=== PATIENT | male | born 1955 | race Caucasian/White ===

== ENCOUNTER 2023-07-14 11:21 | Outpatient (AMB) | payer MEDICARE, SELFPAY ==
--- NOTE | 2023-07-14 11:52 | MHC.OFFWIV ---
Intake Vital Signs 07/14/23 11:55 Height 6 ft 1 in Weight 196 lb BMI 25.9 BP 128/76 Blood Pressure Location Rt brachial Position Sitting Pulse 81 Pulse Source Pulse Oximeter Pulse Oximetry (%) 97 Oxygen Delivery Method Room Air Intake Visit Reasons: EST/bot ears blocked (lobby masked) Intake Note: Patient here for bilat ear blockage that needs to be removed for hearing aids. Patient Tobacco Use Status: Never used Tobacco Allergies No Known Allergies Allergy (Verified 07/14/23 11:59) Do you need a note to return to daycare/school/sports/work: No HPI EST/bot ears blocked (lobby masked) HPI Details 68 year old male patient presents today with bilateral cerumen impaction. He was being fitted/evaluated for hearing aides this week and the metal drill operator could not do so based on the cerumen and advised patient have ears flushed prior to returning. Patient has been placing hydrogen peroxide drops in b/l ears to help soften the cerumen. No ear pain. [facility] Patient Tobacco Use Status: Never used Tobacco Review of Systems Const All systems reviewed & are unremarkable except as noted in HPI and below Physical Exam Vital Signs: Last Vital Signs Pulse 81 07/14/23 11:55 BP 128/76 07/14/23 11:55 Pulse Ox 97 07/14/23 11:55 Oxygen Delivery Method Room Air 07/14/23 11:55 BMI result Body Mass Index 25.9 Const General: cooperative, healthy appearing and no acute distress HEENT Head: Yes normal to inspection Ears: external ears normal, TM's normal bilaterally (cerumen impaction L>R, once clear, TMs wnl) and hearing grossly impaired (mild impairment) bilaterally General nose exam: Normal external nose present Resp Effort & Inspection: normal respiratory effort and able to speak in complete sentences Skin General skin exam: no rashes or lesions noted Psych Appearance: grossly normal Mental Status: mental status grossly normal Speech and movement: Normal speech and movement present Office Procedures Cerumen Removal From which ear canal was the cerumen removed: bilateral Removal: irrigation Notes: patient tolerated procedure well, no complications and ear canal clear [id number] Irrigation/Lavage Assessment & Plan Assessment & Plan (1) Impacted cerumen of both ears: Code(s): H61.23 - Impacted cerumen, bilateral Plan: Ear canals clear following irrigation. TMs normal. Patient tolerated procedure well and will call for f/u with metal drill operator for hearing aide fitting. Advised to use debrox drops prn and he may return to the clinic as needed for repeat irrigations. He agrees to plan. Coding Level of Care Code Est Pt Level 3 (71949) Diagnoses Impacted cerumen of both ears H61.23 CPT Codes Office Procedure - CPT: 73992-Wnt Irrigation/Lavage ([id number])
[2023-07-14 11:55] VITALS: BP 128/76; PULSE 81; O2SAT 97; BMI 25.9
== END 2023-07-14 12:30 | disposition home or self-care (01) ==
PROVIDERS: Visit Provider Nurse Practitioner Family
DX: H61.23 Impacted cerumen, bilateral (principal)
CPT/HCPCS: 69209; 99213

== ENCOUNTER 2023-09-06 12:37 | Outpatient (AMB) | payer MEDICARE, SELFPAY ==
[2023-09-06 12:43] VITALS: BP 120/78; PULSE 80; O2SAT 97; BMI 25.5
--- NOTE | 2023-09-06 12:43 | MHC.PC.OV ---
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 Manager Required: No Accompanied by: Self / Same As Patient Allergies fabric softener Allergy (Mild, Uncoded 09/06/23 13:07) sensitive skin Medication List - Last Reconciled 09/06/23 by MARCO Herr tadalafil 10 mg PO DAILY PRN trazodone 25 mg (1/2 x 50 mg) PO BEDTIME PRN Tobacco use date assessed: 09/06/23 Fall risk assessment: No Falls in past year Last assessed Fall Risk: 09/06/23 Dental Screening Dental Screen Date: 09/06/23 Did you have a dental visit in the last 12 months?: Yes Did you have a dental problem in the last 6 months where you did not have access to dental care?: No Was dental information given to patient?: Patient has dentist HPI HPI Comments History of Present Illness Details Patient is a 68-year-old male here to establish care. He has a past medical history significant for basal cell carcinoma, and prostate malignancy. 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 He was recently seen in dermatology for full body exam 1 month prior to this appointment. Patient has agreed to send us records from his previous providers. He has a chief complaint of insomnia. States that he has difficulty getting and staying asleep. He has utilize interventions like reading, avoiding blue light. He states that anxiety may be playing a small part in this, however he does not feel overly anxious. He has declined a therapist at this time. Denies tingling, chest pain, shortness a breath, numbness, nausea, vomiting, diarrhea. He is up-to-date on his immunizations. Will send medical records to determine when next colonoscopy is due. He is getting fitted for hearing aids later this month. 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 1. Little interest or pleasure in doing things: not at all 2. Feeling down, depressed, or hopeless: not at all 3. Trouble falling or staying asleep, or sleeping too much: several days 4. Feeling tired or having little energy: not at all 5. Poor appetite or overeating: not at all 6. Feeling bad about yourself - or that you are a failure or have let yourself or your family down: not at all 7. Trouble concentrating on things, such as reading the newspaper or watching television: not at all 8. Moving or speaking so slowly that other people could have noticed. Or the opposite - being so fidgety or restless that you have been moving around a lot more than usual: not at all 9. Thoughts that you would be better off or of hurting yourself in some way: not at all Total score: 1 Depression Screening Interpretation: Negative Depression Screening Done: Yes 57160 - PHQ-9 Billing: Yes Source: Developed by Drs. Remi Urbina, Rhonda Perez, Ulisses Osborne and colleagues, with an educational daryn from [employer]. Thrive Questionnaire Date Thrive assessed: 09/06/23 I am a: Patient What is your living situation today?: I have a steady place to live Within the past 12 months, did the food you bought not last and you didn't have the money to get more?: Never true Within the past 12 months, did you worry whether your food would run out before you got money to buy more?: Never true Do you have trouble paying for medicines?: No Do you have trouble getting transportation to medical appointments?: No Do you have trouble paying your heating and electricity bill?: No Do you have trouble taking care of your child, family member or friend?: No Do you have trouble with day-to-day activities such as bathing, preparing meals, shopping, managing finances, etc.?: No Are you currently unemployed and looking for a job?: No Are you interested in more education?: No Please select the resources that you would like help with: None AUDIT C Alcohol Use Questionnaire (AUDIT-C) 1. How often do you have a drink containing alcohol?: Never 3. How often do you have six or more drinks on one occasion?: Never Total Score: 0 BROCK-7 AMB Questionnaire BROCK-7 Date BROKC - 7 assessed: 09/06/23 Feeling nervous, anxious, or on edge: 0 = Not at all Not being able to stop or control worryin = Not at all Worrying too much about different things: 1 = Several days Trouble relaxin = Several days Being so restless that it is hard to sit still: 0 = Not at all Becoming easily annoyed or irritable: 0 = Not at all Feeling afraid as if something awful might happen: 0 = Not at all Total BROCK-7 score (0-4 normal; 5-9 mild; 10-14 moderate; 15-21 severe): 2 Source: Developed by Drs. Remi Urbina, Rhonda Perez, Ulisses Osborne and colleagues, with an educational daryn from [employer]. BROCK-7 Assessment Billing BROCK-7 Assessment Tool: BROCK-7 Assessment 62262 Review of Systems Const Details: Constitutional : No Weight loss, No Fever, No Chills, No Fatigue, No Malaise ENT/Mouth : No sore throat, No Rhinorrhea. No ear fullness Eyes: No Eye Pain, No Swelling, No Redness Cardiovascular : No Chest Pain, No SOB, No Dyspnea on Exertion, No Orthopnea, No Edema, No Palpitations Respiratory : No Cough, No Sputum, No Wheezing Gastrointestinal : No Nausea, No Vomiting, No Diarrhea, No Constipation, No abdominal Pain, No Hematochezia, No Melena Genitourinary : No Dysuria, No Urinary Frequency, No Hematuria, Skin : No Skin Lesions, No rash Neuro : No Weakness, No Numbness, No Dizziness, No Headache Psych : No Anxiety/Panic, No Depression All other systems reviewed and are negative Physical exam (Primary Care) Vital Signs: Last Vital Signs Pulse 80 09/06/23 12:43 BP 120/78 09/06/23 12:43 Pulse Ox 97 09/06/23 12:43 Oxygen Delivery Method Room Air 09/06/23 12:43 Care Plan Goal for BP management: Vital signs reviewed stable BMI result Body Mass Index 25.5 Tobacco/Smoking Status: Tobacco use Status Tobacco use date assessed 09/06/23 09/06/23 12:54 Patient Tobacco Use Status Never used Tobacco 09/06/23 12:51 e-Cigarette/Vaping Use Never Used 09/06/23 12:54 PHQ-9: PHQ-9 Score PHQ-9: Total score 1 09/06/23 12:54 Depression Screening Interpretation: Negative Thrive Assessment: Date of Thrive Assessment Date Thrive assessed 09/06/23 09/06/23 12:54 Const Other: Appearance: Alert.? Oriented X3.? No acute distress.? Head: Normocephalic, atraumatic, no step-offs or deformities ENT: Pharynx normal.?TM intact and pearly stone. Neck: Normal inspection.? Neck supple.? CVS: Normal heart rate and rhythm.? Pulses normal.? Respiratory: No respiratory distress.? Breath sounds normal.? Skin: Skin warm and dry.? Normal skin color.? Normal skin turgor.? Neuro: Oriented X 3.? No motor deficit.? No sensory deficit. CN 2-12 intact Assessment and Plan Assessment & Plan (1) Insomnia: Comment: Will prescribe trazodone for patient to take as directed. Will order labs. Patient is going to send us medical records from his other providers. Patient has been educated on common side effects of this medication. Code(s): G47.00 - Insomnia, unspecified Qualifiers: Insomnia type: primary Qualified Code(s): F51.01 - Primary insomnia Plan: Take your medications as prescribed. If you were prescribed antibiotics today, it is important that you take your medication to their entirety, do not skip any doses, do not finish them early. Follow-up with your primary care provider this week. Return to the emergency department with new or worsening symptoms. Such as fevers, chills, chest pain, shortness of breath, nausea, vomiting, dizziness, headache, vision changes, lethargy In case of emergency call 911 Plan Follow-up for for physical exam in 3 months. Orders: Orders Complete Blood Count Auto Diff Today Z13.0 - Encounter for screening for diseases of the blood and blood-forming organs and certain disorders involving the immune mechanism Comprehensive Met. Panel Today Z91.89 - Other specified personal risk factors, not elsewhere classified UA CC w/rflx Micro + Cult Today E86.0 - Dehydration Lipid Panel Today E78.5 - Hyperlipidemia, unspecified TSH reflex Free T4 Today E03.9 - Hypothyroidism, unspecified Vitamin D 25-OH (D2 and D3) Today Z13.21 - Encounter for screening for nutritional disorder PSA,Total (Free>4and<10) Today Z12.5 - Encounter for screening for malignant neoplasm of prostate Medications: New trazodone 25 mg (1/2 x 50 mg) PO BEDTIME PRN 30 tabs 0RF sleep Coding Level of Care Code Est Pt Level 2 (64508) Diagnoses Primary insomnia F51.01 Insomnia type: primary Additional Codes BROCK-7 Assessment Billing - BROCK-7 Assessment Tool: BROCK-7 Assessment 05728 ([id number]) Time Spent (min) 30
== END 2023-09-06 14:59 | disposition home or self-care (01) ==
PROVIDERS: Visit Provider Nurse Practitioner Primary Care
DX: F51.01 Primary insomnia (principal)
CPT/HCPCS: 99214

== ENCOUNTER 2023-12-06 12:55 | Outpatient (REF) | payer MEDICARE, SELFPAY ==
[2023-12-06 15:50] LABS: MANUAL DIFF FLAG NO
[2023-12-06 15:53] LABS: Basophils Absolute Auto 0.1 X10*3/uL (0.0-0.2); Basophils Percent Auto 0.7 % (0-2); Eosinophils Absolute Auto 0.3 X10*3/uL (0.0-0.4); Hemoglobin 15.5 g/dl (14.0-18.0); Imm Gran Abs Auto 0.02 X10*3/uL (0.00-0.03); Imm Gran Pct Auto 0.3 % (0.0-0.4); Mean Corpuscular HGB Conc 33.7 g/dl (31.0-36.0); Mean Corpuscular Hemoglobin 30.4 pg (27.0-33.0); Mean Corpuscular Volume 90.2 fL (80.0-98.0); Mean Platelet Volume 10.6 fL (9.4-12.4); Monocytes Absolute Auto 0.6 X10*3/uL (0.1-1.2); Monocytes Percent Auto 7.9 % (2-11); Neutrophils Percent Auto 58.1 % (45-73); Platelet Count 274 X10*3/uL (160-400); Red Cell Distribution Width 13.2 % (11.0-16.0); White Blood Count 6.9 X10*3/uL (4.8-10.8)
[2023-12-06 16:00] LABS: Appearance Urine Clear; Color Urine Yellow; Glucose Urine UA Negative (Negative); Leukocyte Esterase Urine Negative (Negative); Nitrite Urine Negative (Negative); UMIC TRIGGER UACC YES; Urine Blood Trace (Negative); Urine Ketones Negative (Negative); Urine Protein Negative (Neg-Trace)
[2023-12-06 16:03] LABS: Bacteria Urine None Seen (None Seen); Hyaline Casts Urine 0-2 /LPF (0-2); Squamous Epithelial Cell Urine 0-2 /HPF (0-2); WBC Urine 0-5 /HPF (0-5)
[2023-12-06 17:48] LABS: Alanine Aminotransferase 17 U/L (0-40); Albumin Level 4.4 g/dL (3.5-5.0); Alkaline Phosphatase 92 U/L (39-117); Anion Gap 13 (12-20); Aspartate Amino Transferase 22 U/L (5-37); Bilirubin Total 0.6 mg/dL (0.0-1.0); Blood Urea Nitrogen 11 mg/dL (9-16); Calcium 9.4 mg/dL (8.4-10.2); Carbon Dioxide 26 mmol/L (22-29); Chloride 103 mmol/L (96-108); Cholesterol 180 mg/dL (<200); Estimated Glomerular Filt Rate > 60; Glucose Random 89 mg/dL (60-115); HDL Cholesterol 48 mg/dL (>40); LDL Cholesterol Calculated 104 mg/dL (<100); Potassium 3.9 mmol/L (3.3-5.1); Sodium 138 mmol/L (135-145); Total Protein 7.4 g/dL (6.5-8.0); Triglycerides 140 mg/dL (<150)
[2023-12-06 18:06] LABS: PSA,Total (Free>4and<10) < 0.10 ng/mL (0.00-4.00)
[2023-12-06 18:07] LABS: TSH reflex Free T4 1.46 uIU/mL (0.32-4.0)
[2023-12-09 14:18] LABS: Vitamin D 25-OH, D2 <4 ng/mL; Vitamin D 25-OH, D3 28 ng/mL; Vitamin D 25-OH, Total 28 ng/mL (30-100)
== END 2023-12-06 12:56 | disposition home or self-care (01) ==
LOC: HO.HMGCLDS 12:55
PROVIDERS: PCP Nurse Practitioner Primary Care; Visit Provider Nurse Practitioner Primary Care
DX: Z13.0 Encounter for screening for diseases of the blood and blood-forming organs and certain disorders involving the immune mechanism (principal)
CPT/HCPCS: 36415; 80053; 80061; 81001; 81003; 82306; 84153; 84443; 85025

== ENCOUNTER 2023-12-09 15:10 | Outpatient (AMB) | payer MEDICARE, SELFPAY ==
--- NOTE | 2023-12-09 15:16 | A.OFFPC_ITS ---
Vital Signs 12/09/23 15:17 Height 6 ft 1 in Weight 192 lb BMI 25.3 BP 120/76 Blood Pressure Location Lt brachial Position Sitting Pulse 78 Pulse Source Pulse Oximeter Pulse Oximetry (%) 96 Oxygen Delivery Method Room Air Intake Visit Reasons: Annual PE Intake Note: Pt is here today for PE. Allergies fabric softener Allergy (Mild, Uncoded 12/09/23 15:22) sensitive skin Medication List - Last Reconciled 12/09/23 by MARCO Herr fluocinolone 0.01% 1 appl topical QID PRN tadalafil 10 mg PO DAILY PRN trazodone 25 mg (1/2 x 50 mg) PO BEDTIME PRN Tobacco use date assessed: 12/09/23 Fall risk assessment: No Falls in past year Last assessed Fall Risk: 12/09/23 Dental Screening Dental Screen Date: 12/09/23 Did you have a dental visit in the last 12 months?: Yes Did you have a dental problem in the last 6 months where you did not have access to dental care?: No Was dental information given to patient?: Patient has dentist HPI HPI Comments History of Present Illness Details Patient is a 68-year-old male in for physical exam. Patient is up-to-date on his immunizations. Patient is up-to-date on colonoscopy, next colonoscopy due 2024. Patient has past medical history of prostate cancer, insomnia, melanoma, erectile dysfunction, diminished hearing, osteoarthritis of bilateral hands and knees, TMJ dysfunction. 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 Patient recently had lab labs drawn. 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 66331 - PHQ-9 Billing: Patient declined-do not bill Source: Developed by Drs. Remi Urbina, Rhonda Perez, Ulisses Osborne and colleagues, with an educational daryn from [employer]. Thrive Questionnaire Date Thrive assessed: 09/06/23 AUDIT C Alcohol Use Questionnaire (AUDIT-C) 1. How often do you have a drink containing alcohol?: 4 or more times a week 2. How many drinks containing alcohol do you have on a typical day when you are drinking?: 1 or 2 3. How often do you have six or more drinks on one occasion?: Never Total Score: 4 BROCK-7 AMB Questionnaire BROCK-7 Date BROCK - 7 assessed: 09/06/23 Source: Developed by Drs. Remi Urbina, Rhonda Perez, Ulisses Osborne and colleagues, with an educational daryn from [employer]. BROCK-7 Assessment Billing BROCK-7 Assessment Tool: pt declined-do not bill Review of Systems Const Details: Constitutional : No Weight loss, No Fever, No Chills, No Fatigue, No Malaise ENT/Mouth : No sore throat, No Rhinorrhea Eyes: No Eye Pain, No Swelling, No Redness Cardiovascular : No Chest Pain, No SOB, No Dyspnea on Exertion, No Orthopnea, No Edema, No Palpitations Respiratory : No Cough, No Sputum, No Wheezing Gastrointestinal : No Nausea, No Vomiting, No Diarrhea, No Constipation, No abdominal Pain, No Hematochezia, No Melena Genitourinary : No Dysuria, No Urinary Frequency, No Hematuria, Musculoskeletal : Admits bilateral hand weakness, No Myalgias, No Joint Swelling Skin : No Skin Lesions, No rash Neuro :No Dizziness, No Headache Psych : No Anxiety/Panic, No Depression, Admits some insomnia. Heme/Lymph: No Bruising, No Bleeding,No Lymphadenopathy Endocrine : No Polyuria, No Polydipsia All other systems reviewed and are negative Physical exam (Primary Care) Vital Signs: Last Vital Signs Pulse 78 12/09/23 15:17 BP 120/76 12/09/23 15:17 Pulse Ox 96 12/09/23 15:17 Oxygen Delivery Method Room Air 12/09/23 15:17 Care Plan Goal for BP management: Vital signs reviewed stable BMI result Body Mass Index 25.3 Tobacco/Smoking Status: Tobacco use Status Tobacco use date assessed 12/09/23 12/09/23 15:27 Patient Tobacco Use Status Never used Tobacco 12/09/23 15:27 e-Cigarette/Vaping Use Never Used 12/09/23 15:22 Thrive Assessment: Date of Thrive Assessment Date Thrive assessed 09/06/23 12/09/23 15:22 Const General: cooperative and no acute distress Orientation/consciousness: patient oriented x3 Limitations: no limitations HENMT Head: Yes normal to inspection and Yes normocephalic Ears: TM's normal bilaterally and other (Patient utilizes hearing aids) General nose exam: Normal external nose present Face and sinus: Yes normal facial exam Mouth: Normal oral and palatal mucosa present Throat: Yes posterior oropharynx normal Eyes Conjunctivae: conjunctivae normal Sclerae: sclerae normal Pupils: Equal, round and reactive pupils present EOM: EOMs intact bilaterally Direct Ophthalmoscopy: normal light reflex, no photophobia and no papilledema Neck Neck: Yes normal visual inspection, Yes full ROM and Yes no lymphadenopathy Thyroid: Thyroid normal Lymphatic: no lymphadenopathy noted Chest Chest palpation & inspection: normal inspection of the chest Resp Effort & Inspection: normal respiratory effort Auscultation: clear to auscultation bilaterally Cardio Rate: regular rate Rhythm: regular rhythm Heart sounds: S1 normal heart sound present and S2 normal heart sound present Peripheral pulses: Peripheral pulses 2+ throughout GI Inspection: Yes normal to inspection Palpation (GI): Soft to palpation and nontender Rectal Exam - Male: Yes deferred General: Yes no CVA tenderness Back/Spine/Pelvis Back: no CVA tenderness Thoracic/Lumbar Spine: thoracic and lumbar spine normal to inspection Skin General skin exam: no rashes or lesions noted Neuro General: patient oriented x3 Cranial nerves: Yes Equal, round and reactive pupils present Cognition (Neuro): normal cognition Motor exam (neuro): 5/5 motor strength present throughout Extrem General: Yes normal to inspection and Yes full ROM Right lower extremity: normal to inspection Left lower extremity: normal to inspection Psych Thought process: Normal thought process present Thought content: Normal thought content present Insight: Good insight present (Psych) Judgement: Good judgement present (Psych) Results Reviewed Results Reviewed: Sodium 138 135-145 mmol/L Potassium 3.9 3.3-5.1 mmol/L CL 103 96-108 mmol/L CO2 26 22-29 mmol/L Gap 13 12-20 BUN 11 9-16 mg/dL Creat 0.95 0.5-1.4 mg/dL EGFR > 60 NOTE: For -Hungarian individuals, multiply the result by 1.210. Chronic Kidney Disease: Estimated GFR < 60 mL/min/1.73m2 Severe Kidney Disease: Estimated GFR < 15 mL/min/1.73m2 Glucose, Random 89 60-115 mg/dL CA 9.4 8.4-10.2 mg/dL Total Bili 0.6 0.0-1.0 mg/dL AST (GOT) 22 5-37 U/L ALT (GPT) 17 0-40 U/L Protein, Total 7.4 6.5-8.0 g/dL Alb 4.4 3.5-5.0 g/dL Triglyceride 140 <150 mg/dL Desirable Triglyceride: less than 150 mg/dL Borderline High Triglyceride 150-199 mg/dL High Triglyceride: 200-499 mg/dL Very High Triglyceride: greater than or equal to 5OO mg/dL Cholesterol 180 <200 mg/dL Desirable Cholesterol: less than 200 mg/dL Borderline High Cholesterol: 200-239 mg/dL High Cholesterol: greater than 239 mg/dL LDL Calculated 104 H <100 mg/dL Desirable LDL: less than 100 mg/dL Near Optimal/Above Optimal LDL: 110-129 mg/dL Borderline High LDL: 130-159 mg/dL High LDL: 160-189 mg/dL Very High LDL: greater than or equal to 190 mg/dL HDL 48 >40 mg/dL Desirable HDL: greater than 40 mg/dL Note: This HDL assay may give artificially low results in patients with liver disease. Alk Phos 92 39-117 U/L TSH 1.46 0.32-4.0 uIU/mL Assessment and Plan Assessment & Plan (1) Insomnia: Comment: Patient prescribed trazodone at previous visit. Patient no longer taking this medication as he states that it made him feel hung over. Patient is taking zolpidem in the past with good effect. Does not want start medication at this time as his insomnia has been controlled. Code(s): G47.00 - Insomnia, unspecified Qualifiers: Insomnia type: primary Qualified Code(s): F51.01 - Primary insomnia Plan: Patient will discuss this at future appointment (2) Osteoarthritis of hands, bilateral: Comment: Will obtain bilateral hand x-ray. Will send patient to physical therapy Code(s): M19.041 - Primary osteoarthritis, right hand; M19.042 - Primary osteoarthritis, left hand Qualifiers: Osteoarthritis type: primary Qualified Code(s): M19.041 - Primary osteoarthritis, right hand; M19.042 - Primary osteoarthritis, left hand (3) Osteoarthritis of knees, bilateral: Comment: Patient performs physical therapy exercises at home. No recent exacerbations. Code(s): M17.0 - Bilateral primary osteoarthritis of knee Qualifiers: Osteoarthritis type: primary Qualified Code(s): M17.0 - Bilateral primary osteoarthritis of knee (4) Erectile dysfunction: Comment: Patient no longer using Tadalafil. Patient not interested in medication or therapy at this time. Code(s): N52.9 - Male erectile dysfunction, unspecified Qualifiers: Erectile dysfunction type: post-procedural Post-procedural erectile dysfunction type: unspecified Qualified Code(s): N52.39 - Other and unspecified postprocedural erectile dysfunction (5) Hearing deficit: Comment: Patient utilizing hearing aids bilaterally with good effect. Code(s): H91.90 - Unspecified hearing loss, unspecified ear Qualifiers: Hearing loss type: unspecified Laterality: bilateral Qualified Code(s): H91.93 - Unspecified hearing loss, bilateral (6) History of echocardiogram: Comment: Patient will send over previous records of past echocardiogram performed 2 years prior. Code(s): Z92.89 - Personal history of other medical treatment Plan: No chest/cardio complaints at appointment Plan Patient will follow-up in 2 months Orders: Orders XR hand LT min 3V 12/09/23 M79.643 - Pain in unspecified hand XR hand RT min 3V 12/09/23 F51.01 - Primary insomnia, M79.643 - Pain in unspecified hand PT Evaluation and Treatment Today M19.041 - Primary osteoarthritis, right hand, M19.042 - Primary osteoarthritis, left hand Coding Level of Care Code Est Pt Prev Care >65y(04050) Diagnoses Primary insomnia F51.01 Insomnia type: primary Primary osteoarthritis of both hands M19.041; M19.042 Osteoarthritis type: primary Primary osteoarthritis of both knees M17.0 Osteoarthritis type: primary Post-procedural erectile dysfunction, unspecified type N52.39 Erectile dysfunction type: post-procedural Post-procedural erectile dysfunction type: unspecified Bilateral hearing loss, unspecified hearing loss type H91.93 Hearing loss type: unspecified Laterality: bilateral History of echocardiogram Z92.89 Time Spent (min) 38
[2023-12-09 15:17] VITALS: BP 120/76; PULSE 78; O2SAT 96; BMI 25.3
== END 2023-12-09 16:27 | disposition home or self-care (01) ==
PROVIDERS: PCP Nurse Practitioner Primary Care; Visit Provider Nurse Practitioner Primary Care
DX: Z00.00 Encounter for general adult medical examination without abnormal findings (principal); F51.01 Primary insomnia; M19.041 Primary osteoarthritis, right hand; M19.042 Primary osteoarthritis, left hand; M17.0 Bilateral primary osteoarthritis of knee; N52.39 Other and unspecified postprocedural erectile dysfunction; H91.93 Unspecified hearing loss, bilateral; Z92.89 Personal history of other medical treatment
CPT/HCPCS: 99397

== ENCOUNTER 2023-12-09 16:10 | Outpatient (REF) | payer MEDICARE, SELFPAY ==
--- NOTE | ~2023-12-09 | XR_ITS ---
EXAMINATION: XR HAND, RIGHT CLINICAL INFORMATION: Pain in unspecified hand COMPARISON: None available. TECHNIQUE: PA, lateral, and oblique views of the right hand. FINDINGS: The bones intact. No fracture. Alignment is anatomic. There is marked degenerative change of the first carpometacarpal joint with associated heterotopic bone formation. There is also mild degenerative change of the PIP joint of the ring and index finger. No erosions or soft tissue calcifications. XR/XR hand RT min 3V IMPRESSION: Marked degenerative change of the first carpometacarpal joint with associated heterotopic bone formation.
--- NOTE | ~2023-12-09 | XR_ITS ---
EXAMINATION: XR HAND, LEFT CLINICAL INFORMATION: Pain in unspecified hand COMPARISON: Same-day right hand TECHNIQUE: PA, lateral, and oblique views of the left hand. FINDINGS: The bones are intact. No fracture. Alignment is anatomic. There is mild degenerative change of the first carpometacarpal joint with heterotopic bone formation. There is mild degenerative change of the PIP joint of the index finger. No erosions or soft tissue calcifications. XR/XR hand LT min 3V IMPRESSION: Mild degenerative changes. No acute bony abnormality.
== END 2023-12-09 16:11 | disposition home or self-care (01) ==
LOC: HO.HMGCX 16:10
PROVIDERS: PCP Nurse Practitioner Primary Care; Visit Provider Nurse Practitioner Primary Care
DX: M79.641 Pain in right hand (principal); M79.642 Pain in left hand; F51.01 Primary insomnia
CPT/HCPCS: 73130

== ENCOUNTER 2024-02-22 13:00 | Outpatient (RCR) | payer MEDICARE, SELFPAY ==
--- NOTE | 2024-01-13 14:48 | MHC.OT.EP ---
[address] [phone] Occupational Therapy Plan of Care Patient Name: Beto Delcid Date of Evaluation: 01/13/24 Diagnosis: Pain Location: Pain Score: 4 Pain Scale Used: Aggravating Factors: Movement; lifting heavy ; repetitive gripping Alleviating Factors: moist heat Assessment: Pt reports pain and stiffness in B CMC J And joints of digits 1-5. He is R hand dominant and reports a family hx of OA; he would benefit from skilled OT therapy to educate pt on joint protection, decrease joint stiffness, and increase the functional use of his B hands Frequency and Duration: The patient will be seen 1 x a week for 4 weeks Short Term Goals: adhere to CMC J protection splint wear Pt will be compliant w/ joint protection techniques Pt will be complaint w/ HEP Technical Advisor Goals: Pt will be I in the use of moist heat to decrease pain Pt will use adaptive techniques to open jars Pt will decrease DASH to 10% Treatment Plan: Therapeutic Exercise Therapeutic Activity Home Exercise Program Splinting Neuro Re-ed Patient Education Desensitization/Sensory Re-ed Edema Control ADL Training Ultrasound NMES Iontophoresis Paraffin Fluidotherapy MHP Cold Packs Joint Mobilization Soft Tissue Mobilization Kinesiotaping Electronically Signed By: Lisa Lemos OTR/L Please Sign and return to therapist. Thank you once again for your referral.
== END 2024-02-22 16:19 ==
LOC: HO.OT 13:00
PROVIDERS: PCP Nurse Practitioner Primary Care; Visit Provider Nurse Practitioner Primary Care
DX: M19.041 Primary osteoarthritis, right hand (principal); M19.042 Primary osteoarthritis, left hand
CPT/HCPCS: 97110; 97140; 97165; 97535

== ENCOUNTER 2024-03-02 12:03 | Outpatient (REF) | payer MEDICARE, SELFPAY ==
[2024-03-02 13:05] LABS: Appearance Urine Clear; Color Urine Yellow; Glucose Urine UA Negative (Negative); Leukocyte Esterase Urine Negative (Negative); Nitrite Urine Negative (Negative); PH 5.5 (5.0-9.0); UMIC TRIGGER UACC YES; Urine Blood Small (1+) (Negative); Urine Ketones Negative (Negative); Urine Protein Negative (Neg-Trace)
[2024-03-02 13:26] LABS: Bacteria Urine None Seen (None Seen); Hyaline Casts Urine 0-2 /LPF (0-2); Squamous Epithelial Cell Urine 0-2 /HPF (0-2); WBC Urine 0-5 /HPF (0-5)
== END 2024-03-02 12:04 | disposition home or self-care (01) ==
LOC: HO.HMGCLDS 12:03
PROVIDERS: PCP Nurse Practitioner Primary Care; Visit Provider Nurse Practitioner Primary Care
DX: E86.0 Dehydration (principal)
CPT/HCPCS: 81001; 81003

== ENCOUNTER 2024-03-03 12:54 | Outpatient (REF) | payer MEDICARE, SELFPAY ==
[2024-03-03 16:26] LABS: Cholesterol 179 mg/dL (<200); HDL Cholesterol 43 mg/dL (>40); LDL Cholesterol Calculated 111 mg/dL (<100); Triglycerides 126 mg/dL (<150)
[2024-03-08 13:33] LABS: Vitamin D 25-OH, D2 <4 ng/mL; Vitamin D 25-OH, D3 29 ng/mL; Vitamin D 25-OH, Total 29 ng/mL (30-100)
== END 2024-03-03 12:55 | disposition home or self-care (01) ==
LOC: HO.HMGCLDS 12:54
PROVIDERS: PCP Nurse Practitioner Primary Care; Visit Provider Nurse Practitioner Primary Care
DX: Z13.21 Encounter for screening for nutritional disorder (principal); Z13.220 Encounter for screening for lipoid disorders
CPT/HCPCS: 36415; 80061; 82306